=== PATIENT | male | born 1960 | race Caucasian/White ===

== ENCOUNTER 2020-06-08 08:28 | Observation (INO) | payer BC ==
[2020-06-08 09:42] LABS: Troponin I 0.016 ng/mL (< 0.028)
[2020-06-08] MEDS ORDERED: Regadenoson 0.4 MG/5 ML SYRINGE ONE (09:44)
[2020-06-08 12:47] LABS: Troponin I Less than 0.010 ng/mL (< 0.028)
[2020-06-08] MEDS ORDERED: Aspirin 325 mg Enteric Coated Tablet PO SCH (13:00)
--- NOTE | 2020-06-08 15:37 | NM ---
EXAM: CARDIAC SPECT HISTORY: Chest pain TECHNIQUE: A myocardial perfusion scan was performed using the single isotope 1 day protocol with solomon hnetium 99m sestamibi. [10 mCi] was injected intravenously for the rest exam followed by 30 mCi for the stress study. Exercise-Lexiscan stress was monitored and interpreted by Dr. Simmons FINDINGS: Homogeneous tracer distribution is seen in the myocardial segments on stress and rest image s without fixed or reversible defects. Gated SPECT LVEF: 66% Wall motion exam: Normal IMPRESSION: Normal myocardial perfusion scan
--- NOTE | 2020-06-08 15:51 | HP ---
PRIMARY CARE PHYSICIAN: Dr. Norris in [place], [place]. CHIEF COMPLAINT: Chest pain. HISTORY OF PRESENT ILLNESS: The patient is a 59-year-old with no known past medical history. He presented to the ER in [place] for a chief complaint of mid epigastric pain. 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 He stated that burping did help a little bit, but when the pain was not able to fully go away, he did call 911. He states that he has been having some indigestion frequently, which he has not taken any medication for. Today, in [place] [facility], they did a chest x-ray and EKG, and they administered a GI cocktail 81 mg aspirin, Protonix IV, and Zofran IV. They then transferred him to the [place] ER, where they completed a more blood work and another EKG. PAST MEDICAL HISTORY: None. PAST SURGICAL HISTORY: Rotator cuff, LASIK, and two hernia repairs. ALLERGIES: NO KNOWN ALLERGIES. MEDICATIONS: Ambien 10 mg h.s. p.r.n. SOCIAL HISTORY: The patient lives at home with his . 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 He smokes a pack per day for multiple years, he states. Denies any alcohol or illicit drug use. FAMILY HISTORY: Dad from an [place]. REVIEW OF SYSTEMS: All other review of systems was negative unless noted in the HPI. PHYSICAL EXAMINATION: VITAL SIGNS: Blood pressure 148/86, pulse 77, respiratory rate 20, temperature 98.5, and O2 saturation 98% on room air. GENERAL: The patient is afebrile, appears nontoxic. HEENT: Head, atraumatic and normocephalic. Eyes, extraocular muscles intact. PERRLA. NECK: Trachea midline. No JVD. RESPIRATORY: Clear to auscultation bilaterally. Breath sounds clear, but generally diminished throughout. CARDIOVASCULAR: Regular rate and rhythm. No murmurs, no rubs, no gallops. ABDOMEN: Nontender. No distention. Bowel sounds normal. EXTREMITIES: No edema. No cyanosis. No clubbing. SKIN: Warm, dry, and intact. PSYCH: Normal affect, normal behavior. LABORATORY DATA: EKG; sinus rhythm, 73 beats per minute. Chest x-ray, no acute cardiopulmonary process, COPD. White blood cells 11.3, neutrophils 78.3. D-dimer 0.33. Sodium 141, potassium 3.4, carbon dioxide 21, anion gap 16, BUN 10, creatinine 0.90, GFR 86, glucose 100, lactic acid 1.5. Troponins 0.014, 0.036, 0.016, less than 0.010. Urinalysis negative for acute UTI. Toxicology screen, nothing detected. IMPRESSION AND PLAN: The patient had an episode of chest pain versus epigastric pain that was relieved with a GI cocktail. He does not have lot of history of heart issues at this time, but he does have a family history, and we will complete a cardiac stress test today to help us decide our course of action. He also abuses tobacco. We will administer patch if desired; however, he cannot have one at this time due to his scheduled cardiac stress test. For the epigastric pain, we can give him another GI cocktail if his pain returns. GI and DVT prophylaxis in place with the Protonix and SCDs. The patient wishes to be a full code. His designated power of title attorney will be his , Elda. The patient has been discussed with Dr. Glover. Job ID: [id number]
--- NOTE | 2020-06-08 17:16 | DIS ---
DATE OF ADMISSION: 06/08/2020 DATE OF DISCHARGE: 06/08/2020 PRIMARY CARE PHYSICIAN: Gauri Whyte. REASON FOR ADMISSION: Midepigastric pain with indeterminate troponin. DIAGNOSES AT DISCHARGE: 1. Dyspepsia. 2. Tobacco abuse. PROCEDURES: Nuclear medicine stress testing showing no evidence for ischemic disease. Normal myocardial perfusion scan. CONSULTATIONS: None. SUMMARY OF HOSPITAL COURSE: See Yanique's Priya and P from earlier in the day. 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 He was taken in the [place]. There, he had a GI cocktail and aspirin along with Protonix IV, resolved his symptoms. He had an initial troponin, it was negative. A repeat troponin 2 hours later was mildly indeterminate at 0.036. The next two troponins were both negative. The patient was transferred here due to his smoking risk factor and indeterminate troponin. He had a nuclear medicine stress test which was negative. He is asymptomatic and is ready to go home. He does live in the [place] area and so, his is going to drive down here to pick him up and it will be about 4 hours before she gets here. DISCHARGE MANAGEMENT: Discharged to home. ACTIVITY: As tolerated. DIET: Regular diet. FOLLOWUP: Follow up with primary care physician in 1 to 2 weeks. If has any further stomach discomfort, he will need a Gastroenterology referral and EGD. DISCHARGE MEDICATIONS: Omeprazole 40 mg daily, 14 caps, dispensed. The patient has been counseled to quit smoking. Job ID: [id number]
[2020-06-09] MEDS ORDERED: Aspirin 325 mg Enteric Coated Tablet PO SCH (09:00)
== END 2020-06-08 18:44 | disposition home or self-care (01) ==
LOC: ERS 08:28 → ERHOLD 09:52
PROVIDERS: ADMIT Emergency Medicine; ATTEND Emergency Medicine
DX: R10.13 Epigastric pain (principal); F17.210 Nicotine dependence, cigarettes, uncomplicated
CPT/HCPCS: 36415; 78452; 93005; 93017; A9500; G0378; J2785